=== PATIENT | female | born 1960 | race Caucasian/White ===

== ENCOUNTER 2017-01-13 11:38 | Emergency (ER) | payer BC ==
[2017-01-13] MEDS ORDERED: MECLIZINE 25 MG TABLET PO ONE (12:35)
--- NOTE | 2017-01-13 12:42 | Emergency Department Record ---
History of Present Illness - General Chief Complaint: Dizziness Stated Complaint: HIGH BP, DIZZY Time Seen by Provider: 01/13/17 12:26 Source: Patient Mode of Arrival: Ambulatory Limitations: No limitations - History of Present Illness Initial Comments: The patient is here due to not feeling well for 2 weeks. She states she has had a cough with nasal congestion and a stuffy head for 2 weeks. She has been having dizziness off and on but it seemed to worsen today. The patient describes the dizziness as feeling off balance and wobbly. She attributes it to the ear congestion and stuffy head. There has been a dry cough but no fever, ST , vomiting, or diarrhea. The patient's took her BP at home and it was 180/100 so he consulted [employer] and it told him to take her to the ER so that is what he did. Additionally the patient did have a mild DODGE today but no fever or neck pain. Onset/Timin -: Week(s) Timing: Gradual onset, Intermittent Description: Lightheadedness, Nausea, Off-balance, "Room spinning" History of Same: Yes Improves With: Nothing Worsens With: Nothing - [place] Coma Scale Eye Response: (4) Open spontaneously Motor Response: (6) Obeys commands Verbal Response: (5) Oriented [place] Total: 15 - Related Data Previous Rx's Medication Instructions Recorded Cefdinir [Omnicef] 300 mg PO BID #20 cap 01/13/17 Fluticasone Propionate [Flonase] 2 spray EACH NARES DAILY #1 bottle 01/13/17 Meclizine HCl [Antivert] 25 mg PO Q8H #21 tablet 01/13/17 Allergies Allergy/AdvReac Type Severity Reaction Status Date / Time NSAIDS (Non-Steroidal AdvReac Intermediate stomach Unverified 08/03/16 07:25 Anti-Inflamma bleed risk ibuprofen AdvReac Unknown Unverified 08/03/16 07:25 Travel Screening - Travel/Exposure Within Last 30 Days Have you traveled within the last 30 days?: No - Travel/Exposure Within Last Year Have you traveled outside the [place] in the last year?: No - Additonal Travel Details Have you been exposed to anyone with a communicable illness?: No - Travel Symptoms Symptom Screening: None Review of Systems Constitutional: Reports: Malaise. Denies: Chills, Fever Eyes: Denies: Eye discharge ENT: Reports: Congestion Respiratory: Reports: Cough. Denies: Dyspnea Cardiovascular: Denies: Arrhythmia, Chest pain Endocrine: Reports: Fatigue Past Medical History - SOCIAL HISTORY Smoking Status: Current every day smoker Alcohol Use: Occasional Drug Use: None - RESPIRATORY Hx Respiratory Disorders: Yes Hx Asthma: Yes Hx Bronchitis: Yes Hx COPD: Yes Hx Pneumonia: Yes Hx Sleep Apnea: Yes - CARDIOVASCULAR Hx Cardio Disorders: Yes Hx Hypertension: Yes - NEURO Hx Neuro Disorders: No - GI Hx GI Disorders: Yes Hx Reflux: Yes Hx Hiatal Hernia: Yes Comment:: gastric sleeve - Hx Genitourinary Disorders: Yes Hx Kidney Stones: Yes Hx UTI: Yes - ENDOCRINE Hx Endocrine Disorders: Yes Hx Diabetes: Yes (diet controlled) Hx Thyroid Disease: No - MUSCULOSKELETAL Hx Musculoskeletal Disorders: Yes Hx Osteoporosis: Yes - PSYCH Hx Psych Problems: No - HEMATOLOGY/ONCOLOGY Hx Hematology/Oncology Disorders: No Family Medical History Any Significant Family History?: No Physical Exam - General General Appearance: Alert, Oriented x3, Cooperative, No acute distress - Head Head exam: Atraumatic, Normocephalic, Normal inspection - Eye Eye exam: Normal appearance, PERRL, EOMI - ENT ENT exam: Mucous membranes moist, Normal orophraynx. negative: Normal exam, TM' s normal bilaterally (There are bilateral serous effusions R>L.) Throat exam: Normal inspection. negative: Tonsillar erythema, Tonsillar exudate - Neck Neck exam: Normal inspection, Full ROM. negative: Lymphadenopathy, Meningismus , Tenderness - Respiratory Respiratory exam: Normal lung sounds bilaterally. negative: Respiratory distress - Cardiovascular Cardiovascular Exam: Regular rate, Normal rhythm, Normal heart sounds - GI/Abdominal GI/Abdominal exam: Soft, Normal bowel sounds. negative: Tenderness - Extremities Extremities exam: Normal inspection, Full ROM, Normal capillary refill. negative: Tenderness - Neurological Neurological exam: Alert, Normal gait, Oriented X3, Other (Neg Drift and Rhomberg exams.). negative: Abnormal gait, Altered, Motor sensory deficit Course Vital Signs 01/13/17 12:13 Temperature 98.0 F Pulse Rate 69 Respiratory 16 Rate Blood Pressure 173/81 Pulse Ox 97 - Reevaluation(s) Reevaluation #1: The patient is doing much better at this time. She denies any DODGE, CP, neck pain or visual changes. She states her dizziness is almost completely gone with the Antivert. I did explain to her that I think her head congestion and otitis media is contributing to her symptoms. We will discharge her on oral Abx's, Flonase and Antivert and have her F/U with her PCP next week. 01/13/17 13:42 Medical Decision Making - Data Complexity MDM Data: Labs Ordered and/or Reviewed, X-Ray Ordered and/or Reviewed, EKG Ordered and/or Reviewed - Lab Data Result diagrams: 01/13/17 12:40 01/13/17 12:40 - EKG Data -: EKG Interpreted by Me EKG: No Acute Changes (NSR at 62, RBBB.) - Radiology Data Radiology results: Report reviewed (CXR: Neg.) Disposition Disposition: Discharge Clinical Impression: Otitis media Qualifiers: Otitis media type: unspecified Chronicity: acute Qualified Code(s): H66.90 - Otitis media, unspecified, unspecified ear Disposition: Home, Self-Care Condition: (2) Stable Instructions: Otitis Media (ED), Dizziness (ED) Additional Instructions: Please continue the Cefdinir and take the Flonase and Antivert as directed. Please see your PCP next week for recheck and monitor your BP. Return to the ER for any worsening symptoms. Prescriptions: Cefdinir [Omnicef] 300 mg PO BID #20 cap Fluticasone Propionate [Flonase] 2 spray EACH NARES DAILY #1 bottle Meclizine HCl [Antivert] 25 mg PO Q8H #21 tablet Forms: Patient Portal Access Time of Disposition: 13:45 Quality - Quality Measures Quality Measures: N/A - Blood Pressure Screening View Details: Yes Does Patient Have Any of the Following: No Blood Pressure Classification: Hypertensive Reading Systolic Measurement: 138 Diastolic Measurement: 94 Screening for High Blood Pressure: < Pre-Hypertensive BP, F/U Documented > [ G8950] Pre-Hypertensive Follow-up Interventions: Referral to alternative/primary care provider.
[2017-01-13 12:51] LABS: BASO % 0.3 % (0-6); GRAN % 48.1 % (47-80); HEMATOCRIT 38.5 % (35.0-47.0); HEMOGLOBIN 13.4 gm/dl (11.6-16.0); LYMPH % 41.2 % (16-45); MEAN CELL VOLUME 87.5 fl (81-97); MEAN CORPUSCULAR HEMOGLOBIN 30.5 pg (27-33); MEAN CORPUSCULAR HGB CONC 34.8 g/dl (32-36); MEAN PLATELET VOLUME 9.6 fl (7.4-10.4); MONO % 8.4 % (0-9); PLATELET COUNT 306 K/uL (130-400); RED CELL DISTRIBUTION WIDTH 12.2 % (11.5-14.5); WHITE BLOOD COUNT W/O DIFF 7.5 K/uL (4.2-12.2)
[2017-01-13 13:01] LABS: BLOOD UREA NITROGEN 11 mg/dL (6-20)
[2017-01-13 13:02] LABS: CREATININE 0.5 mg/dL (0.5-0.9); EST GLOMERULAR FILTRATION RATE > 60 mL/min; TOTAL PROTEIN 6.7 g/dL (6.6-8.7)
[2017-01-13 13:04] LABS: GLUCOSE,RANDOM 72 mg/dL (74-109)
[2017-01-13 13:07] LABS: ALB/GLOB RATIO 1.6 (1.1-1.8); ALBUMIN 4.1 g/dL (4.0-5.0); ALKALINE PHOSPHATASE 68 U/L (35-104); ALT/SGPT 14 U/L (<33); AST/SGOT 13 U/L (10.0-35.0); C-REACTIVE PROTEIN 0.08 mg/dL (<0.5)
[2017-01-13] MEDS ORDERED: CEFDINIR 300 MG CAPSULE PO ONE (13:41)
--- NOTE | 2017-01-14 08:01 | RADIOLOGY REPORT ---
EXAM: CHEST, TWO VIEWS HISTORY: HYPERTENSION, COUGH. TECHNIQUE: Upright PA and lateral views of the chest are obtained. Comparison: Two view chest radiographic examination dated 06/23/16. FINDINGS: The heart is not enlarged and the pulmonary vasculature is nondilated. The lungs and pleural spaces remain clear. The lungs appear borderline to mildly hyperinflated. There are degenerative changes scattered throughout the visualized spine, stable. These are associated with mild dextroconvex curvature centered at the mid thoracic levels. IMPRESSION: NO RADIOGRAPHIC EVIDENCE OF ACUTE CARDIOPULMONARY DISEASE WITHOUT CHANGE SINCE . JOB NUMBER: [id number] MTDD
== END 2017-01-13 13:58 | disposition home or self-care (01) ==
LOC: ER 11:38
DX: H65.93 Unspecified nonsuppurative otitis media, bilateral (principal); R42 Dizziness and giddiness; R11.0 Nausea; R51 Headache; R05 Cough; I10 Essential (primary) hypertension; F17.210 Nicotine dependence, cigarettes, uncomplicated
CPT/HCPCS: 99284 ×2; 85025; 86140; 80053; 71020; 93005; 93010; J3490

== ENCOUNTER 2018-05-24 05:23 | Emergency (ER) | payer BC ==
[2018-05-24] MEDS ORDERED: AMOXICILLIN 500MG CAPSULE PO ONE (05:32)
[2018-05-24] MEDS ORDERED: NEOMYCIN/POLYMYXIN B SULF/HC 10ML BTL OT ONE (05:32)
--- NOTE | 2018-05-24 05:36 | Emergency Department Record ---
History of Present Illness - General Chief complaint: ENT Stated complaint: EAR PAIN Time Seen by Provider: 05/24/18 05:32 Source: Patient Mode of Arrival: Ambulatory Limitations: No limitations - History of Present Illness Initial comments: 57 yo female presents to ED for evaluation of right ear pain x 1 day, reports that she wears hearing aids daily. Patient denies drainage from the ear, denies bleeding from the ear as well. Patient reports pain with palpation of the outer ear, denies trauma or injury to the ear. MD complaint: Ear pain Onset/Timin -: Days(s) Location: R ear Severity: Moderate Quality: Aching Consistency: Constant Improves with: None Worsens with: None - Related Data Home Medications Medication Instructions Recorded Confirmed Last Taken Diazepam 10 mg PO QHS 05/24/18 05/24/18 Unknown Gabapentin [Neurontin] 100 mg PO TID 05/24/18 05/24/18 Unknown Hydrocodone/Acetaminophen 5 mg PO Q6H PRN 05/24/18 05/24/18 Unknown [Hydrocodone/Acetaminophen 5mg/325mg] Previous Rx's Medication Instructions Recorded Amoxicillin [Amoxil] 875 mg PO BID #20 tab 05/24/18 Neomycin/Polymyxin B Sulf/Hc 2 drop AFFEAR QID #10 ml 05/24/18 [Cortisporin Otic] Allergies Allergy/AdvReac Type Severity Reaction Status Date / Time No Known Drug Allergies Allergy Unverified 02/17/17 12:16 Review of Systems Constitutional: Denies: Chills, Fever, Malaise, Night sweats Eyes: Denies: Eye discharge, Eye pain ENT: Reports: Ear pain. Denies: Congestion, Epistaxis Respiratory: Denies: Cough, Dyspnea Cardiovascular: Denies: Chest pain, Dyspnea on exertion Endocrine: Denies: Fatigue, Heat or cold intolerance Gastrointestinal: Denies: Abdominal pain, Nausea, Vomiting Genitourinary: Denies: Incontinence, Retention Musculoskeletal: Denies: Arthralgia, Back pain Skin: Denies: Bruising, Change in color Neurological: Denies: Abnormal gait, Confusion, Headache, Seizure Psychiatric: Denies: Anxiety Hematological/Lymphatic: Denies: Anemia, Blood Clots Past Medical History - SOCIAL HISTORY Smoking Status: Current every day smoker Drug Use: None - RESPIRATORY Hx Respiratory Disorders: Yes Hx Asthma: Yes Hx Bronchitis: Yes Hx COPD: Yes Hx Pneumonia: Yes Hx Sleep Apnea: Yes - CARDIOVASCULAR Hx Cardio Disorders: Yes Hx Hypertension: Yes - NEURO Hx Neuro Disorders: No - GI Hx GI Disorders: Yes Hx Reflux: Yes Hx Hiatal Hernia: Yes Comment:: gastric sleeve - Hx Genitourinary Disorders: Yes Hx Kidney Stones: Yes Hx UTI: Yes - ENDOCRINE Hx Endocrine Disorders: Yes Hx Diabetes: Yes (diet controlled) Hx Thyroid Disease: No - MUSCULOSKELETAL Hx Musculoskeletal Disorders: Yes Hx Osteoporosis: Yes - PSYCH Hx Psych Problems: No - HEMATOLOGY/ONCOLOGY Hx Hematology/Oncology Disorders: No Physical Exam - General General Appearance: Alert, Oriented x3, Cooperative, Moderate distress Limitations: No limitations - Head Head exam: Atraumatic, Normocephalic, Normal inspection Head exam detail: negative: Abrasion, Contusion, Armstrong's sign, General tenderness, Hematoma, Laceration - Eye Eye exam: Normal appearance. negative: Conjunctival injection, Periorbital swelling, Periorbital tenderness, Scleral icterus - ENT Ear exam: External canal tenderness. negative: Auricular hematoma, Auricular trauma Nasal Exam: negative: Active bleeding, Discharge, Dried blood, Foreign body Mouth exam: negative: Drooling, Laceration, Muffled voice, Tongue elevation - Neck Neck exam: Normal inspection. negative: Meningismus, Tenderness - Respiratory Respiratory exam: Normal lung sounds bilaterally. negative: Rales, Respiratory distress, Rhonchi, Stridor - Cardiovascular Cardiovascular Exam: Regular rate, Normal rhythm, Normal heart sounds - GI/Abdominal GI/Abdominal exam: Soft. negative: Rebound, Rigid, Tenderness - Rectal Rectal exam: Deferred - exam: Deferred - Extremities Extremities exam: Normal inspection. negative: Pedal edema, Tenderness - Back Back exam: Denies: CVA tenderness (R), CVA tenderness (L) - Neurological Neurological exam: Alert, Normal gait, Oriented X3 - Psychiatric Psychiatric exam: Normal affect, Normal mood - Skin Skin exam: Normal color. negative: Abrasion Type of lesion: negative: abrasion Course Vital Signs 05/24/18 05:28 Temperature 98.4 F Pulse Rate [ 69 Pulse Ox Probe] Respiratory 20 Rate Blood Pressure 174/82 [Left Arm] Pulse Ox 96 - Reevaluation(s) Reevaluation #1: 05/24/18 05:40 TM appears retracted, mildly dull EAC is also very sensitive with visualization on examination, no swelling or debris noted in the canal. Will treat with cortisporin and amoxicillin as directed. Patient appears stable for discharge at this time. Disposition Disposition: Discharge Clinical Impression: Otitis externa Qualifiers: Otitis externa type: unspecified type Chronicity: acute Laterality: right Qualified Code(s): H60.501 - Unspecified acute noninfective otitis externa, right ear Disposition: Home, Self-Care Condition: (2) Stable Instructions: Otitis Externa (ED) Additional Instructions: Return to ED if your symptoms worsen or if you have any concerns. Cortisporin ear drops, 2 drops TID, Amoxicillin as directed. Follow-up with your family doctor in 3-5 days as directed. Prescriptions: Amoxicillin [Amoxil] 875 mg PO BID #20 tab Neomycin/Polymyxin B Sulf/Hc [Cortisporin Otic] 2 drop AFFEAR QID #10 ml Forms: Patient Portal Access Time of Disposition: 05:36 Quality - Quality Measures Quality Measures: N/A - Blood Pressure Screening Does Patient Have Any of the Following: No Blood Pressure Classification: Pre-Hypertensive BP Reading Systolic Measurement: 174 Diastolic Measurement: 82 Screening for High Blood Pressure: < Pre-Hypertensive BP, F/U Documented > [ G8950] Pre-Hypertensive Follow-up Interventions: Referral to alternative/primary care provider.
== END 2018-05-24 05:48 | disposition home or self-care (01) ==
LOC: ER 05:23
DX: H60.501 Unspecified acute noninfective otitis externa, right ear (principal); I10 Essential (primary) hypertension; F17.210 Nicotine dependence, cigarettes, uncomplicated; E11.9 Type 2 diabetes mellitus without complications
CPT/HCPCS: 99282; 99283